=== PATIENT | female | born 1995 | race Caucasian/White ===

== ENCOUNTER 2019-12-23 19:17 | Emergency (ER) | payer OTHER, SELFPAY ==
[2019-12-23 19:21] VITALS: BP 138/86; PULSE 100; RESP 20; TEMP 37.4; O2SAT 99; BMI 31.9
--- NOTE | 2019-12-23 19:27 | PC.NURSE ---
Pt declined ibuprofen or tylenol. Pt has clear and equal breath sounds.
--- NOTE | 2019-12-23 20:15 | DI.RAD.S_ITS ---
PROCEDURE: XR CHEST 2V INDICATIONS: fever, cough TECHNIQUE: 2 views of the chest were acquired. COMPARISON: [facility], , CHEST 1 VIEW, 07/08/2017, 8:21. FINDINGS: Surgical changes and devices: None. Lungs and pleura: Lungs are clear. No pleural effusions or pneumothorax. Mediastinum: Mediastinal contours are normal. Heart size is normal. Bones and chest wall: No suspicious bony abnormalities. Soft tissues appear unremarkable. IMPRESSION: 1. No acute cardiopulmonary disease. Dictated by: Ron Xiao M.D. on 12/23/2019 at 21:18 Approved by: Ron Xiao M.D. on 12/23/2019 at 21:18
[2019-12-23] MEDS: IBUPROFEN 400 MG TABLET 800 MG PO (20:48)
--- NOTE | 2019-12-23 21:09 | ED.URI ---
HPI - URI/Sore Throat <SCOTTIE VarelaBC - Last Filed: 12/23/19 21:34> General Chief Complaint: Upper Respiratory Symptoms Stated Complaint: FEVER NO MOVEMENT LEFT LUNG Time Seen by Provider: 12/23/19 20:06 Source: patient Mode of arrival: Ambulatory Limitations: no limitations History of Present Illness HPI Narrative: The patient is a 24-year-old female nonsmoker who denies pertinent medical history presents with a chief complaint of ?I have no breath sounds of my left lung? as well as fevers, sore throat cough. She states she has been sick since this morning with a temperature of 104?. She was tested for flu at that clinic, and this came back negative. She states her cough is productive. She presents to the emergency department because she is concerned about not having breath sounds in her left lung. This she states that her sore throat started a few days ago, but has been getting slightly better but still sore. She denies any ear pain. She denies any abdominal pain, nausea vomiting or diarrhea. Related Data Home Medications Medication Instructions Recorded Confirmed cholecalciferol (vitamin D3) 2,000 iu PO QDAY #0 01/15/17 [Vitamin D3] multivitamin [Multiple Vitamins] 1 tab PO QDAY #0 01/15/17 Previous Rx's Medication Instructions Recorded triamcinolone acetonide 1 johanna TOPICAL BID #15 gm 01/24/17 medroxyprogesterone 150 mg IM SEE INSTRUCTIONS #1 ea 02/07/17 naproxen 500 mg OR BID #60 tab 04/07/17 albuterol sulfate [Ventolin HFA] 0 puff INH Q4HP PRN #1 ea 07/08/17 Allergies Allergy/AdvReac Type Severity Reaction Status Date / Time No Known Drug Allergies Allergy Verified 12/23/19 19:21 Review of Systems <VERNON Varela - Last Filed: 12/23/19 21:34> Review of Systems Narrative: GENERAL: See HPI HEENT: See HPI RESPIRATORY: See HPI CARDIOVASCULAR: Denies chest pain, palpitations, orthopnea, edema, GASTROINTESTINAL: Denies nausea, vomiting, abdominal pain, diarrhea, constipation, melena. : Denies dysuria, frequency, incontinence, hematuria, urinary retention. MUSCULOSKELETAL: denies weakness, joint pain, or bony pain SKIN: Denies rash, skin lesions, or other NEUROLOGIC: Denies weakness, headache, numbness, change in speech, confusion, seizures, incoordination. PSYCHIATRIC: No concerning psychosocial issues. 12 point review of systems is negative except for those stated above Patient History <Lalitha VERNON Ya - Last Filed: 12/23/19 21:34> Family History (Updated 03/20/16 @ 00:00 by Conversion Provider) Grandfather Mental health problem Grandmother Age: 63 Mental health problem Grandfather Age: 65 Cancer Social History Smoking Status: Never smoker Smoking Status: Never smoker alcohol intake frequency: holidays/special occasions only Substance Use Type: does not use Exam <VERNON Varela - Last Filed: 12/23/19 21:34> Narrative Exam Narrative: GENERAL: This is a well-nourished, well-developed patient, no acute distress HEAD: Atraumatic. Normocephalic. No temporal or scalp tenderness. EYES: Pupils equal round and reactive. Extraocular motions intact. No scleral icterus. No injection or drainage. ENT: Nose without bleeding, purulent drainage or septal hematoma. Throat without erythema, tonsillar hypertrophy or exudate. Uvula midline. Airway patent. Bilateral TMs pearly rader. Bilateral ear canals within normal limits. NECK: Trachea midline. No JVD or lymphadenopathy. Supple, nontender, no meningeal signs. CARDIOVASCULAR: Regular rate and rhythm RESPIRATORY: Clear to auscultation. Breath sounds equal bilaterally. No wheezes, rales, or rhonchi. No cough. No increased respiratory effort. GASTROINTESTINAL: Abdomen soft, non-tender, nondistended. No hepato-splenomegaly, or palpable masses. No guarding. Active bowel sounds all 4 quadrants EXTREMITIES: No clubbing, cyanosis, or edema. No joint tenderness, effusion, or edema noted. BACK: Nontender without deformity or crepitance. No flank tenderness. NEURO: AOx3. SKIN: No rash or erythema on visible skin Initial Vital Signs Initial Vital Signs: Vital Signs Temperature 99.3 F 12/23/19 19:21 Pulse Rate 100 H 12/23/19 19:21 Respiratory Rate 20 12/23/19 19:21 Blood Pressure 138/86 12/23/19 19:21 Pulse Oximetry 99 12/23/19 19:21 <Andrae Wing DO - Last Filed: 12/23/19 22:08> Initial Vital Signs Initial Vital Signs: Vital Signs Temperature 99.3 F 12/23/19 19:21 Pulse Rate 100 H 12/23/19 19:21 Respiratory Rate 20 12/23/19 19:21 Blood Pressure 138/86 12/23/19 19:21 Pulse Oximetry 99 12/23/19 19:21 Course <VERNON Varela - Last Filed: 12/23/19 21:34> Orders Ordered: ED Orders 12/23/19 20:15 XR chest 2V Stat Discontinued Medications Ibuprofen (Advil) 800 mg PO NOW ONE Stop: 12/23/19 20:16 Last Admin: 12/23/19 20:48 Dose: 800 mg Documented by: SARAN Vital Signs Vital signs: Vital Signs - 8 hr 12/23/19 19:21 12/23/19 21:55 Temperature 99.3 F 98.0 F Pulse Rate 100 H 86 Respiratory Rate 20 18 Blood Pressure 138/86 111/77 Pulse Oximetry 99 97 <Andrae Wing DO - Last Filed: 12/23/19 22:08> Orders Ordered: ED Orders 12/23/19 20:15 XR chest 2V Stat Discontinued Medications Ibuprofen (Advil) 800 mg PO NOW ONE Stop: 12/23/19 20:16 Last Admin: 12/23/19 20:48 Dose: 800 mg Documented by: SARAN Vital Signs Vital signs: Vital Signs - 8 hr 12/23/19 19:21 12/23/19 21:55 Temperature 99.3 F 98.0 F Pulse Rate 100 H 86 Respiratory Rate 20 18 Blood Pressure 138/86 111/77 Pulse Oximetry 99 97 MDM - URI/Sore Throat <VERNON Varela - Last Filed: 12/23/19 21:34> Lab Data Labs: Point of Care Testing Rapid Strep A Negative Imaging Data Chest x-ray: Radiologist's Impression: [address] [place] [id number] XRay Report Signed Patient: Renaldo Talavera#: [id number] : 1995Acct:[id number] Age/Sex: 24 / FDate of Service: 12/23/19 Loc: ED Accession Number: [id number] Procedure: XR chest 2V Ordering Provider: Lalitha Ya PROCEDURE: XR CHEST 2V INDICATIONS: fever, cough TECHNIQUE: 2 views of the chest were acquired. COMPARISON: [facility], CHEST 1 VIEW, 07/08/2017, 8:21. FINDINGS: Surgical changes and devices: None. Lungs and pleura: Lungs are clear. No pleural effusions or pneumothorax. Mediastinum: Mediastinal contours are normal. Heart size is normal. Bones and chest wall: No suspicious bony abnormalities. Soft tissues appear unremarkable. IMPRESSION: 1. No acute cardiopulmonary disease. Dictated by: Ron Xiao M.D. on 12/23/2019 at 21:18 Approved by: Ron Xiao M.D. on 12/23/2019 at 21:18 [facility] Narrative Medical decision making narrative: The patient is a 24-year-old female who presents with a chief complaint of decreased lung zones over left lung. Lung sounds are equal bilaterally. She tested negative for the flu at the outpatient clinic, so this was not repeated. POC strep was done in this came back negative. Given patient's concern, x-ray was taken. No signs of pneumonia. I did discuss at length with the patient that I was not sure exactly what viral illness she had, but that I recommended supportive care including Tylenol, Motrin. The patient and her significant other appeared frustrated that there were sent from [place] for concern of decreased breath sounds in her x-ray is within normal limits. There very concerned that her fever and cough started suddenly. I discussed that this can correlate with viral onset, copious reassurance provided. Discussed at length following up with primary care provider coming back to the emergency department for any acute concerns such as shortness of breath etcetera. Patient has no questions or concerns upon discharge and states understanding of return precautions as well as follow-up care. <Andrae Wing, - Last Filed: 12/23/19 22:08> Lab Data Labs: Point of Care Testing Rapid Strep A Negative Discharge Plan Departure Patient Disposition: Home Clinical Impression: Upper respiratory infection Qualifiers: URI type: unspecified viral URI Qualified Code(s): J06.9 - Acute upper respiratory infection, unspecified Discharge Date/Time: 12/23/19 21:57 Instructions: DI for Viral Upper Respiratory Infection -- Adult Activity Restrictions/Additional Instructions: Thank you for trusting us with your care today. Your x-ray shows no pneumonia. Both of your lungs are inflated. You tested negative for strep ear today and your fever is down. Please use [id number] medications as needed and able. Please rest and push fluids. Please come back to the emergency department for any acute concerns Please follow-up with primary care provider. Prescriptions: No Action multivitamin [Multiple Vitamins] 1 EACH tablet 1 tab PO QDAY Qty: 0 RF: 0 cholecalciferol (vitamin D3) [Vitamin D3] 2,000 UNIT capsule 2,000 iu PO QDAY Qty: 0 RF: 0 triamcinolone acetonide 0.1 % cream 1 johanna Topical BID Qty: 15 RF: 0 medroxyprogesterone 150 MG/1 ML suspension 150 mg IM SEE INSTRUCTIONS Qty: 1 RF: 1 naproxen 500 MG tablet 500 mg OR BID Qty: 60 RF: 1 albuterol sulfate [Ventolin HFA] 90 MCG/PUFF HFA aerosol inhaler 0 puff INH Q4HP PRNQty: 1 RF: 0 Referrals: [facility] [Outside] <Andrae Wing, DO - Last Filed: 12/23/19 22:08> Sign Out Provider Sign Out Attestation: Dr Wing Co-Sign Statement: I was available for consultation during this patient's emergency department visit. This chart is signed by myself for administrative purposes only. I did not have direct contact with this patient during this visit. They were seen independently by the APC.
[2019-12-23 21:55] VITALS: BP 111/77; PULSE 86; RESP 18; TEMP 36.7; O2SAT 97
== END 2019-12-23 21:57 | disposition home or self-care (01) ==
PROVIDERS: Emergency Provider Nurse Practitioner Family
DX: J06.9 Acute upper respiratory infection, unspecified (principal); R50.9 Fever, unspecified
CPT/HCPCS: 71046; 87880; 99283

== ENCOUNTER → 2020-10-05 13:05 | Outpatient (CLI) | payer OTHER, MEDICAID, SELFPAY ==
[2020-10-05 13:51] LABS: Add Manual Diff / Slide Review NO; Basophils Absolute Auto 0 /uL (0-100); Basophils Percent Auto 0.3 % (0-2); Eosinophils Absolute Auto 0 /uL (0-450); Eosinophils Percent Auto 0.3 % (2-4); Hematocrit 41.9 % (36-46); Hemoglobin 13.9 g/dL (12.0-16.0); Lymphocytes Absolute Auto 1400 /uL (1100-4500); Lymphocytes Percent Auto 19.9 % (25-40); Mean Corpuscular Hemoglobin 30.5 PG (26-34); Mean Corpuscular Volume 92.3 fL (80-100); Monocytes Absolute Auto 500 /uL (0-900); Monocytes Percent Auto 7.2 % (3-14); Neutrophils Absolute Auto 5100 /uL (1500-7000); Neutrophils Percent Auto 72.3 % (50-75); Platelet Count 218 X10^3/uL (150-400); Red Blood Cell Count 4.54 X10^6/uL (4.0-5.2); Red Cell Distribution Width 13.2 % (11.6-14.8); White Blood Cell Count 7.1 X10^3/uL (4.5-11.0)
[2020-10-05 15:01] LABS: Appearance Urine UA SL CLOUDY; Bilirubin Urine UA NEGATIVE (NEGATIVE); Color Urine UA YELLOW; Glucose Urine UA NEGATIVE (Negative); Ketones Urine UA 1+ (NEGATIVE); Leukocyte Esterase Urine UA 3+ (NEGATIVE); Nitrite Urine UA POSITIVE (Negative); Occult Blood Urine UA TRACE-LYSED (Negative); Protein Urine UA 1+ (Negative); Specific Gravity Urine UA 1.015 (1.000-1.035); Urobilinogen Urine UA 0.2 E.U./dL (0.2)
[2020-10-05 15:03] LABS: pH Urine UA 6.5 (4.5-8.0)
[2020-10-05 15:04] LABS: RBC Urine None Seen (0-5/HPF)
[2020-10-05 15:08] LABS: Squamous Epithelial Cell Urine 0-1 /HPF (0-5/HPF); WBC Urine >100/HPF (0-5/HPF)
[2020-10-05 15:09] LABS: Bacteria Urine Many (>30); Culture Indicated Urine Specimen Cultured; Transitional Epi Cells Urine 5-10/HPF (0-5/HPF)
[2020-10-05 17:25] LABS: Hepatitis B Surface Antigen NEGATIVE s/c (NEGATIVE); Rubella Antibody IgG 7.3 IU/mL (>15)
[2020-10-05 17:29] LABS: HIV 1 & 2 Ab/Ag 4th Gen Combo NEGATIVE (NEGATIVE); Hep C Virus Ab w/Reflex Quant NEGATIVE s/c (NEGATIVE)
[2020-10-06 07:44] LABS: RPR Screen Non Reactive (Non Reactive)
[2020-10-06 10:27] LABS: Varicella IgG Antibody 209 index (Immune >165)
== END ==
PROVIDERS: Referring Provider Specialist; Visit Provider Specialist
DX: Z34.01 Encounter for supervision of normal first pregnancy, first trimester (principal); R31.9 Hematuria, unspecified; Z3A.01 Less than 8 weeks gestation of pregnancy
CPT/HCPCS: 36415; 80055; 81003; 81015; 86787; 86803; 86850; 86900; 86901; 87077; 87086; 87147; 87186; 87389

== ENCOUNTER → 2020-12-21 14:48 | Outpatient (CLI) | payer OTHER, MEDICAID, SELFPAY ==
[2020-12-23 20:53] LABS: AFP, Serum 25.9 ng/mL (.); Calc Gestational Age Ultrasound (.); Estriol, Free 1.97 ng/mL (.); Inhibin A, Dimeric 150.16 pg/mL (.); Inhibin A, MoM 1.14 (.); Maternal Ethnicity Caucasian (.); Maternal Weight 215 lbs (.); Number of Fetuses No (.); OSBR Risk 1 IN 10000 (.); Results Report (.); Test Results *Screen Negative* (.); hCG, Serum 27357 mIU/mL (.)
== END ==
PROVIDERS: PCP Internal Medicine; Referring Provider Specialist; Visit Provider Specialist
DX: Z34.02 Encounter for supervision of normal first pregnancy, second trimester (principal); Z3A.17 17 weeks gestation of pregnancy
CPT/HCPCS: 36415; 82105; 82677; 84702; 86336

== ENCOUNTER → 2021-01-19 11:34 | Outpatient (CLI) | payer OTHER, MEDICAID, SELFPAY | PROVIDERS: PCP Internal Medicine; Visit Provider Specialist | DX: Z34.02 Encounter for supervision of normal first pregnancy, second trimester (principal); Z3A.21 21 weeks gestation of pregnancy | CPT/HCPCS: 87086 ==

== ENCOUNTER → 2021-01-19 11:56 | Outpatient (CLI) | payer OTHER, MEDICAID, SELFPAY ==
--- NOTE | 2021-01-19 11:57 | DI.US.S_ITS ---
PROCEDURE: US OB >= 14 WEEKS FETUS INDICATIONS: 20 week anatomy OUTSIDE/PRIOR DATING DATA: First dating scan (date and location): 10/05/2020 . Estimated date of delivery (NICOLE) from first dating scan: 05/29/2021 . TECHNIQUE: Real-time scanning was performed of the fetus, with image documentation and biometric measurements. Endovaginal scanning: No COMPARISON: [facility], , OB >= 14 WEEKS FETUS, 12/21/2020, 14:32. FINDINGS: General: A single living intrauterine gestation is present. Presentation: Vertex. Placenta: Placental position is posterior , without previa. Amniotic fluid index: 10 cm, normal range is 5-24 cm. heart rate: 150 beats per minute. Maternal cervical canal: 4.3 cm long. Normal lower limit is 2.5 cm. biometrics: Biparietal diameter: 20 weeks 5 days Head circumference: 21 weeks 2 days Abdominal circumference: 21 weeks 3 days Femur length: 22 weeks 1 day Estimated gestational age from initial scan: 21 weeks 3 days Composite gestational age from present scan: 21 weeks 2 days Estimated weight and percentile: 440 g; 56 percentile Measurement variability for biometric dating: +/- 7 days from 14 weeks to 15 weeks 6 days gestation, +/- 10 days from 16 weeks to 21 weeks 6 days gestation, +/- 2 weeks from 22 weeks to 27 weeks 6 days gestation, +/- 3 weeks for 28 weeks gestation or later. weight reference: 4500 g or EFW >90/95% is considered macrosomia or large for gestational age. EFW <10% is small for gestational age. EFW 5% or less is considered intra-uterine growth restriction. Anatomic survey: Neuro: Ventricles are non-dilated at less than 10 mm. Cisterna magna is normal at 3-11 mm. Cerebellum is normal in size and morphology. Nuchal skin fold: Normal at less than 6 mm between 14-21 weeks gestational age. Face: Nose and lips, facial profile are normal. Spine: No evidence for spina bifida. Heart: 4-chambered heart is present, with normal ventricular outflow tracts. Diaphragm: Diaphragm is intact. Stomach: Left-sided stomach is present. Kidneys: No hydronephrosis. Normal is less than 5 mm in 2nd trimester, less than 7 mm in 3rd trimester. Cord: 3-vessel cord has orthotopic insertion. Bladder: Normal in size. Extremities: All 4 extremities identified. IMPRESSION: 1. Normal interval growth. 2. Normal anatomic survey. Dictated by: Shemar Franklin [facility] Interpreted: Kelby Hein MD on 01/19/2021 at 16:51 Approved by: Kelby Hein M.D. on 01/21/2021 at 12:32
== END ==
PROVIDERS: PCP Internal Medicine; Referring Provider Specialist; Visit Provider Specialist
DX: Z34.02 Encounter for supervision of normal first pregnancy, second trimester (principal); Z3A.21 21 weeks gestation of pregnancy
CPT/HCPCS: 76811; 87086

== ENCOUNTER → 2021-04-22 12:02 | Outpatient (ROUT) | payer OTHER, MEDICAID, SELFPAY ==
[2021-04-22 13:34] LABS: Urine N gonorrhoeae NOT DETECTED
[2021-04-22 13:36] LABS: Urine Chlamydia NOT DETECTED
== END ==
PROVIDERS: PCP Internal Medicine; Visit Provider Specialist
DX: Z34.03 Encounter for supervision of normal first pregnancy, third trimester (principal); Z3A.34 34 weeks gestation of pregnancy
CPT/HCPCS: 87491; 87591

== ENCOUNTER → 2021-05-07 14:21 | Outpatient (CLI) | payer OTHER, MEDICAID, SELFPAY ==
[2021-05-08 12:22] LABS: Strep Grp B PCR NEG for Grp B Strep
== END ==
PROVIDERS: PCP Internal Medicine; Visit Provider Specialist
DX: Z34.03 Encounter for supervision of normal first pregnancy, third trimester (principal); Z3A.37 37 weeks gestation of pregnancy
CPT/HCPCS: 87653

== ENCOUNTER 2021-05-24 21:57 | Inpatient (IN) | payer OTHER, MEDICAID, SELFPAY ==
[2021-05-24 22:26] LABS: Add Manual Diff / Slide Review NO; Basophils Absolute Auto 0 /uL (0-100); Basophils Percent Auto 0.4 % (0-2); Eosinophils Absolute Auto 100 /uL (0-450); Eosinophils Percent Auto 1.4 % (2-4); Hematocrit 35.8 % (36-46); Hemoglobin 11.8 g/dL (12.0-16.0); Lymphocytes Absolute Auto 2000 /uL (1100-4500); Lymphocytes Percent Auto 19.6 % (25-40); Mean Corpuscular HGB Conc 33.1 % (30-36); Mean Corpuscular Volume 93.8 fL (80-100); Monocytes Absolute Auto 500 /uL (0-900); Neutrophils Absolute Auto 7500 /uL (1500-7000); Neutrophils Percent Auto 73.6 % (50-75); Platelet Count 230 X10^3/uL (150-400); Red Blood Cell Count 3.81 X10^6/uL (4.0-5.2); Red Cell Distribution Width 14.1 % (11.6-14.8); White Blood Cell Count 10.2 X10^3/uL (4.5-11.0)
[2021-05-24] MEDS: DINOPROSTONE VAG (CERVIDIL) 10 MG VAG (22:31)
[2021-05-24] MEDS: ACETAMINOPHEN 325 MG TABLET 650 MG PO (22:36)
[2021-05-24] MEDS: ZOLPIDEM 5 MG TABLET PO (22:37)
[2021-05-24 23:16] LABS: COVID19 - ADMIT (NP swab/PCR) Negative (Negative)
[2021-05-25 01:03] VITALS: BP 106/55
[2021-05-25] MEDS: ONDANSETRON 4 MG/2 ML INJ IV (06:25)
[2021-05-25] MEDS: ACETAMINOPHEN 325 MG TABLET 650 MG PO ×2 (06:30→20:25)
[2021-05-25] MEDS: CALCIUM CARBONATE 500 MG TAB 1000 MG PO (08:12)
[2021-05-25] MEDS: LACTATED RINGERS 1,000 ML 100 ML IV (10:44)
[2021-05-25] MEDS: OXYTOCIN PREMIX 30 UNIT/500 ML PLAST..BAG IV (10:45)
--- NOTE | 2021-05-25 13:35 | PM.OBHP.1 ---
OB HPI Date/Time Date of admission: 05/24/21 Date Patient Seen: 05/25/21 Time Patient Seen: 07:45 History of Present Condition Chief complaint: : 1 Para: 0 Estimated Date of Delivery: 05/29/21 Estimated Gestational Age (weeks): 39 Narrative: Sanchez Talavera is a 25 year old female who lives on [facility] admitted for induction for distance from the hospital Indications Indication for induction OB: maternal distance History of Present care: good care, initiated at week # (6), number of visits (11) and pounds weight gain (50) Dating criteria: based on 1st trimester US only Ultrasounds: normal mid trimester US Obstetrical complications: none Medical complications: none Preadmission Labs Blood type: O (+) positive -: Antibody screen: negative, GBS status: negative, HBsAG: negative, HIV: negative and RPR/VDLR: negative -: Chlamydia screen: not detected and Gonorrhea screen: not detected -: Rubella: not immune and Varicella: immune HCAB: negative Evaluation Evaluation Baseline heart rate: 130 Variability: Moderate (11-25) monitor accelerations: Present Monitor Decelerations: Absent Contraction Frequency (minutes): 2 Uterine Contraction Intensity: Mild Category of Tracing: Reactive Status: Category l Cervical dilation (cm): 1 Cervical effacement (%): 60 station: -2 Laboratory results: Laboratory Tests 05/24/21 05/24/21 05/24/21 21:50 21:50 21:50 WBC 10.2 RBC 3.81 L Hgb 11.8 L Hct 35.8 L MCV 93.8 MCH 31.0 MCHC 33.1 RDW 14.1 Plt Count 230 Neut % (Auto) 73.6 Lymph % (Auto) 19.6 L Mcintosh % (Auto) 5.0 Eos % (Auto) 1.4 L Baso % (Auto) 0.4 Neut # (Auto) 7500 H Lymph # (Auto) 2000 Mcintosh # (Auto) 500 Eos # (Auto) 100 Baso # (Auto) 0 SARS-CoV-2 (PCR) Negative Blood Type O Positive Antibody Screen Negative [facility] Medical History (Updated 10/15/20 @ 20:42 by Sydni Brush) Acne Alcoholic gastritis Bronchitis (~2016) FAS ( alcohol syndrome) (~1995) Genital warts (~2015) Kidney failure (~2010) Partial blindness Pneumonia (~2014) Psoriasis Pyelonephritis (05/14/15) Scoliosis Single kidney (05/14/15) Family History (Updated 09/29/20 @ 11:05 by Darya Garcia RN) Grandfather No problems noted. Grandmother Age: 65 Family history unknown Grandfather Age: 67 Cancer Mother Family history unknown Father No problems noted. Grandmother No problems noted. 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 Had a drink once or twice before she knew she was .) substance use type: marijuana (Not since confirmed. ) during the past year weight has: remained stable well-balanced diet: daily or most days daily servings fruits/ve-4 caffeine: Yes (Cut down on soda. Coffee once or twice a week. ) eating out: 1-3 times/week Type(s) of exercise: walking and normal ROM and activity frequency: 3-4 times per week duration: 15-30 minutes/day Meds Home Medications and Allergies Home Medications Medication Instructions Recorded Confirmed Type prenat.vits,mariano,pyz-aksm-pqtol 1 tab PO DAILY 09/29/20 05/20/21 History cetirizine 10 mg capsule (Zyrtec) 10 mg PO DAILY PRN #30 cap 03/17/21 05/20/21 Rx ondansetron HCl 4 mg tablet 4 mg PO Q8H PRN #20 tab 03/17/21 05/20/21 Rx (Zofran) omeprazole 40 mg capsule,delayed 40 mg PO DAILY #30 cap 04/06/21 05/20/21 Rx release Allergies Allergy/AdvReac Type Severity Reaction Status Date / Time crab Allergy Mild Itchy Verified 02/24/21 13:22 hands, hives shrimp Allergy Mild Itchy Verified 02/24/21 13:22 hands, hives Review of Systems Review of Systems Narrative: Patient has not had any leakage of fluid. Good movement. No headaches, scotomata, epigastric pain. Patient denies any significant cramping ROS: Yes All systems reviewed with the patient and are negative except as otherwise documented Exam Vital Signs (past 8 hours): Blood pressure 122/77, pulse of 80, temperature 97.8? Narrative Exam Narrative: HEENT exam within normal limits. Lungs are clear to auscultation percussion. Heart is regular rate and rhythm no S3-S4 murmurs. Abdomen is gravid. Fetus is vertex. Extremities with trace edema and nontender. Normal DTRs. Objective Labs Result Diagrams: 05/24/21 21:50 Labs: Laboratory Results - last 24 hr 05/24/21 05/24/21 05/24/21 21:50 21:50 21:50 WBC 10.2 RBC 3.81 L Hgb 11.8 L Hct 35.8 L MCV 93.8 MCH 31.0 MCHC 33.1 RDW 14.1 Plt Count 230 Neut % (Auto) 73.6 Lymph % (Auto) 19.6 L Mcintosh % (Auto) 5.0 Eos % (Auto) 1.4 L Baso % (Auto) 0.4 Neut # (Auto) 7500 H Lymph # (Auto) 2000 Mcintosh # (Auto) 500 Eos # (Auto) 100 Baso # (Auto) 0 SARS-CoV-2 (PCR) Negative Blood Type O Positive Antibody Screen Negative Assessment and Plan Assessment and Plan Assessment and Plan narrative: 39 week gestation admitted for Cytotec induction for distance from the hospital. Patient did not have any significant cervical change. Options reviewed with the patient of leaving the hospital and returning when she went into active labor. Returning tomorrow night to repeat oral Cytotec and Pitocin. Also we could start Pitocin however could not guarantee that she would start in labor or that we would not increase her risk for or vacuum or forceps delivery. Patient would like to be started on Pitocin. She will be evaluated for further plan later today if not in active labor.
--- NOTE | 2021-05-25 20:48 | PM.OBPNLAB ---
Date/Time Date Patient Seen: 05/25/21 Time Patient Seen: 20:48 Pain Control Pain control: tolerating well Pelvic Exam Dilation (cm): 1 Effacement (%): 60 station: -1 Amniotic membrane status: Intact Contractions Contractions on admission: regular Monitor mode: External Pitocin rate (mU/min): 14 Contraction frequency (min): 2 Contraction duration (min): 1 Contraction pattern: Regular Contraction intensity: Mild Status status: Category l Heart Rate Baseline: 130 Monitor Accelerations: Present Monitor Decelerations: Absent Monitor Variability: Moderate Assessment and Plan Assessment: induction ongoing Plan: continuous present management Comments: Patient was started on Pitocin after 10:00 a.m. when her Cervidil was finished. It was apparent that at some point her IV infiltrated and she was not getting Pitocin. She had an IV restart and Pitocin begun at 3:00 p.m.. Patient is now finally getting more uncomfortable with contractions. Cervix has become more anterior with the head descending slightly. We will continue with Pitocin induction at this time. heart tones are reassuring. No rupture membranes.
[2021-05-26] MEDS: fentaNYL 100 MCG/2 ML INJ IV ×2 (01:24)
[2021-05-26] MEDS: ONDANSETRON 4 MG/2 ML INJ IV ×2 (02:58→10:21)
[2021-05-26] MEDS: FENT 2MCG/ML BUPIV 0.125% EPI 200 MCG/100 ML PLAST..BAG 12 MCG EPIDURAL ×3 (04:16→17:00)
--- NOTE | 2021-05-26 07:18 | PM.OBPNLAB ---
Date/Time Date Patient Seen: 05/26/21 Time Patient Seen: 07:18 Pain Control Pain control: epidural Pelvic Exam Dilation (cm): 3 Effacement (%): 75 station: -1 Amniotic membrane status: Intact Contractions Monitor mode: External Pitocin rate (mU/min): 22 Contraction frequency (min): 2 Contraction duration (min): 1 Contraction pattern: Irregular Contraction intensity: Mild Status status: Category l Heart Rate Baseline: 130 Monitor Accelerations: Present Monitor Decelerations: Absent Monitor Variability: Moderate Assessment and Plan Assessment: induction ongoing Comments: Patient had Pitocin turned off for 1-2 hours. Will restart Pitocin. Discussed if she has no progress in labor the next step will be section. Ultrasound shows the fetus is in the 0 P position.
[2021-05-26] MEDS: CALCIUM CARBONATE 500 MG TAB 1000 MG PO (08:39)
[2021-05-26] MEDS: ACETAMINOPHEN 325 MG TABLET 650 MG PO (08:40)
--- NOTE | 2021-05-26 13:08 | PM.OBPNLAB ---
Date/Time Date Patient Seen: 05/26/21 Time Patient Seen: 13:00 Pain Control Pain control: tolerating well and epidural Pelvic Exam Dilation (cm): 3 Effacement (%): 80 station: -1 Amniotic membrane status: Intact Comments: AROM performed 1305, clear fluid, IUPC placed Contractions Contractions on admission: irregular Monitor mode: Internal Pitocin rate (mU/min): 18 Contraction frequency (min): 4 Contraction duration (min): 1 Contraction pattern: Irregular Contraction phase: Resting Contraction intensity: Mild Intrauterine tone measurement: 30 Status status: Category l Heart Rate Baseline: 145 Monitor Accelerations: Present Monitor Decelerations: Absent Monitor Variability: Moderate Comments: tolerated induction well. Assessment and Plan Assessment: induction ongoing Plan: continuous present management Comments: Optimize uterine contraction activity and continue close observation for progress in dilation, effacement, and descent. The patient is aware that failure to progress in labor would be an indication for primary section but since the infant is clearly doing well in labor thus far, there is no indication for and potential obstetrical indications for , e.g. failed induction or secondary arrest, have not yet been met. Will continue augmentation to affect adequate uterine contraction activity and recheck cervical exam for progress in 4 hours. The current plan, underlying rationale explained to patient and support person. All patient questions answered.
--- NOTE | 2021-05-26 16:44 | PM.OBPNLAB ---
Date/Time Date Patient Seen: 05/26/21 Pain Control Pain control: tolerating well and epidural Pelvic Exam Dilation (cm): 8 Effacement (%): 100 station: -1 Amniotic membrane status: Ruptured Contractions Contractions on admission: regular Monitor mode: Internal Pitocin rate (mU/min): 21 Contraction frequency (min): 4 Contraction duration (min): 1 Contraction pattern: Irregular Contraction phase: Resting Contraction intensity: Strong/Firm Intrauterine tone measurement: 50 Status status: Category l Heart Rate Baseline: 150 Monitor Accelerations: Episodic Monitor Decelerations: Absent Monitor Variability: Moderate Assessment and Plan Assessment: active labor and induction ongoing Plan: continuous present management Comments: Current position indeterminate.
[2021-05-26] MEDS: LACTATED RINGERS 1,000 ML 100 ML IV ×2 (17:33→21:17)
--- NOTE | 2021-05-26 20:18 | PM.PREOP ---
Pre-operative Note COVID-19 COVID-19 status: Negative Result date/Date tested (Pos, Neg/Pending): 05/24/21 Interval Note History & Physical reviewed/Exam performed by Physician: Yes Changes to H&P: Yes H&P completed within 30 days and has changed as indicated here:: second-stage arrest with maternal exhaustion patient requesting
--- NOTE | 2021-05-26 20:19 | P.PNOB_ITS ---
Date/Time Date Patient Seen: 05/26/21 Time Patient Seen: 20:19 Pain Control Pain control: epidural ( patient is still having a lot of back pain) Pelvic Exam Dilation (cm): 10 Effacement (%): 100 station: -1 Amniotic membrane status: Ruptured Contractions Contractions on admission: regular Monitor mode: Internal Pitocin rate (mU/min): 25 Contraction frequency (min): 3 Contraction duration (min): 1 Contraction pattern: Regular Contraction intensity: Strong/Firm Intrauterine tone measurement: 50 Status status: Category ll Heart Rate Baseline: 160 Monitor Accelerations: Episodic Monitor Decelerations: Absent Monitor Variability: Minimal Assessment and Plan Plan: Comments: Patient pushing for over 2 hours with minimal descent and epidural not controlling her pain. patient given options for vacuum, forceps, and section. Patient is requesting for maternal exhaustion and second-stage arrest. Consent form for section was reviewed with the patient. Risk of damage to bladder, bowel, ureters that could require additional surgery to repair. Risk of infection. Risk of bleeding that could result in a blood transfusion which the patient is agreeable to. Reaction to medication or anesthesia. Consent form signed and questions answered. Patient's and purification operator helper were present for the discussion as well as the nurse.
[2021-05-26] MEDS: CITRIC ACID/SODIUM CITRATE 15 ML SOLUTION 30 ML PO (20:37)
[2021-05-26] MEDS: CEFAZOLIN 1 GM VIAL 2 GM IV ×2 (20:45→21:41)
[2021-05-26] MEDS: ACETAMINOPHEN 325 MG TABLET 975 MG PO (21:16)
--- NOTE | 2021-05-26 22:16 | SUR.OPER ---
Supine on Padded OR bed, head on pillow, safety belt at thigh, arms secured on padded arm boards at <90 degrees abduction. Bump under right buttock. Legs uncrossed with pillow under knees, gel pad to heels, tape over blanket to lower legs.
[2021-05-26] MEDS: BUPIVACAINE 0.25% W/ EPI 30 ML VIAL INJ (22:21)
--- NOTE | 2021-05-26 22:38 | SUR.OPER ---
Viable Baby girl delivered at 2205. Placenta delivered. Placenta and Cord blood tubes X2 given to L&D RN.
[2021-05-26 23:00] VITALS: BP 127/80; PULSE 86; RESP 14; TEMP 36.9; O2SAT 96
[2021-05-26 23:05] VITALS: BP 147/83; PULSE 110; RESP 19; O2SAT 94
--- NOTE | 2021-05-26 23:06 | PM.OBCS.1 ---
Operative Date/Time/Diagnoses Date of procedure: 05/26/21 Time of procedure: 23:06 Pre-op diagnosis: second-stage arrest Post-op diagnosis: same Procedure & Clinicians Procedure: primary low-transverse section Same procedure as scheduled: Yes Indications: second-stage arrest Surgeon: Shirley Florentino Click Yes if Unassisted: Yes Anesthesia Type: General and Epidural Operative Notes Findings: Normal tubes, ovaries, and uterus. Viable female weighing 7 lb. Apgars of 9 and 9 Closure Type: primary Specimen(s): cord blood Intraoperative meds administered: Duramorph, Ketorolac and Pitocin Applied: Catheter ( Whitlock) Estimated Blood Loss (mL): 400 Blood products transfused: none Procedure in detail: The patient was brought to the operating room where she underwent a bolus of her epidural for anesthesia, but then required general anesthesia because she did not have good pain control. She was placed in a supine position with a left lateral tilt. A Whitlock catheter was in place. Pulsatile stockings were placed and functional throughout the case. 2 g of Ancef were given IV prior to the incision. Warming was in place. The patient was prepped and draped in usual sterile fashion. A low transverse incision was made with a scalpel and the incision was carried down to the fascial layer which was incised transversely with scissors. The midline attachments are superiorly and inferiorly. Some bleeding was controlled Bovie. The rectus muscles were in the midline and the peritoneal incision was made with no damage to internal structures. The peritoneum was incised and superiorly and inferiorly. The incision was stretched with the surgeon and personalized living assistant placing traction. Bladder blade was placed and a bladder flap was developed and the bladder held away from the lower uterine segment. An incision was made in the uterus with the scalpel and the incision was extended with stretching. The head was elevated out of the abdomen and with fundal pressure by the personalized living assistant the baby was delivered. The infant was bulb suctioned for clear fluid and handed off to the warmer. Cord blood was collected. The placenta delivered spontaneously with traction. The uterus was cleaned with clean laps. The uterine incision was closed in 2 layers of 0 chromic suture the first a running locking layer the second an imbricating layer. The bladder peritoneum was repaired with 2-0 Vicryl suture. The gutters were cleaned of any remaining fluids and ovaries and tubes were observed to be normal. Adequate hemostasis was noted. The perineum was closed with 2-0 Vicryl suture. The fascia layer was closed with 0 Vicryl suture with 2 stitches. The incision was irrigated and adequate hemostasis noted. The incision was closed with interrupted 3-0 Vicryl sutures and then a subcuticular stitch of 4-0 Vicryl suture. Steri-Strips were placed. The uterus was massaged to remove any clots. The patient went to recovery room in good condition. Counts of instruments and sponges were correct. Complications: none Baby 1: Infant Gender: Female Presentation: vertex Position: Left Occiput Posterior Placental Delivery Description: Expressed Cord Vessel Description: 3 Vessels score (1 min): 9 score (5 min): 9 weight: 7 lb Post-operative Condition: stable Disposition: other ( Center) Aftercare: routine postop
[2021-05-26 23:10] VITALS: BP 127/87; PULSE 98; RESP 19; O2SAT 95
--- NOTE | 2021-05-26 23:13 | SUR.OPER ---
Prior to going to the OR, patient's Presybeterian is holding onto patients silver colored chain necklace and her wedding ring that was on the necklace. Patients nose piercing and bilateral earrings left in place.
--- NOTE | 2021-05-26 23:14 | SUR.PHASEI ---
Patient complained of site pain while being turned for Dr. Gonzales to remove the epidural catheter and during fundus check. Returned to sleep after being returned to supine position. Resp even and regular, skin warm and dry.
[2021-05-26 23:15] VITALS: BP 122/72; PULSE 101; RESP 22; O2SAT 95
[2021-05-26 23:24] VITALS: BP 136/77; PULSE 91; RESP 19; O2SAT 95
--- NOTE | 2021-05-26 23:49 | SUR.PHASEI ---
2338 to BR4. Bed down and locked, call light within reach, SCDs and continuous pulse oximeter on. Dad, family member, and baby in the room. Report given upon arrival. New pads and chux placed prior to transfer. Patient mostly sleeping, responses appropriate to questions. VSS. No further questions from staff.
--- NOTE | 2021-05-26 23:57 | SUR.PHASEI ---
2330 late entry - urine clearing to yellow in the gil bag
[2021-05-27] MEDS: KETOROLAC 30 MG/ML VIAL 15 MG IV ×2 (05:56→12:30)
[2021-05-27 08:53] LABS: Add Manual Diff / Slide Review NO; Basophils Absolute Auto 0 /uL (0-100); Eosinophils Absolute Auto 0 /uL (0-450); Hematocrit 27.8 % (36-46); Hemoglobin 9.3 g/dL (12.0-16.0); Lymphocytes Absolute Auto 1000 /uL (1100-4500); Mean Corpuscular HGB Conc 33.6 % (30-36); Mean Corpuscular Hemoglobin 31.3 PG (26-34); Mean Corpuscular Volume 93.2 fL (80-100); Monocytes Absolute Auto 600 /uL (0-900); Monocytes Percent Auto 4.5 % (3-14); Neutrophils Absolute Auto 12300 /uL (1500-7000); Neutrophils Percent Auto 88.5 % (50-75); Platelet Count 188 X10^3/uL (150-400); Red Blood Cell Count 2.98 X10^6/uL (4.0-5.2)
[2021-05-27] MEDS: BUTORPHANOL 1 MG/ML VIAL 0.5 MG IV (11:02)
[2021-05-27] MEDS: ACETAMINOPHEN 325 MG TABLET 650 MG PO ×2 (11:03→16:39)
[2021-05-27] MEDS: DOCUSATE 100 MG CAPSULE 200 MG PO (11:04)
[2021-05-27] MEDS: FERROUS SULFATE 325 MG TABLET PO (11:04)
[2021-05-27] MEDS: PRENATAL VIT,CALC/IRON/FOLIC 1 TABLET 1 TAB PO (11:04)
[2021-05-27] MEDS: OXYCODONE IR 5 MG TABLET PO (16:38)
--- NOTE | 2021-05-27 19:20 | P.PNOB_ITS ---
Subjective - OB Subjective Patient comments: incisional pain and flatus present baby status: doing well and nursing well Cobb feeding status: exclusively breast feeding Date Patient Seen: 05/27/21 Time Patient Seen: 19:21 Interval history: Postoperative primary for a second-stage arrest Exam Vital Signs (past 8 hours): Blood pressure 111/71, pulse of 80, temperature 98.6? Oxygen Delivery Method Room Air Narrative Exam Narrative: Abdomen is soft, nontender. Uterus is firm, at U, nontender. Dressing is clean, dry, intact. Mild lochia. Extremities with trace edema and nontender. Objective Labs Result Diagrams: 05/27/21 08:43 Labs: Laboratory Results - last 24 hr 05/27/21 08:43 WBC 14.0 H RBC 2.98 L Hgb 9.3 L Hct 27.8 L MCV 93.2 MCH 31.3 MCHC 33.6 RDW 14.0 Plt Count 188 Neut % (Auto) 88.5 H Lymph % (Auto) 7.0 L [place] % (Auto) 4.5 Eos % (Auto) 0.0 L Baso % (Auto) 0.0 Neut # (Auto) 04953 H Lymph # (Auto) 1000 L [place] # (Auto) 600 Eos # (Auto) 0 Baso # (Auto) 0 Assessment & Plan Plan day: 1 plan OB: routine postop care Comments: Patient unable to urinate since Whitlock catheter removed she will have an in and out catheter Time Spent With Patient Time: Total time spent is greater than 50% in coordination of care (as documented) at patient's floor/unit and/or counseling patient: Time with patient: less than 15 minutes
[2021-05-27] MEDS: OXYCODONE IR 5 MG TABLET 10 MG PO (20:19)
[2021-05-28] MEDS: OXYCODONE IR 5 MG TABLET 10 MG PO (01:05)
[2021-05-28] MEDS: ACETAMINOPHEN 325 MG TABLET 650 MG PO ×3 (01:13→19:54)
[2021-05-28] MEDS: OXYCODONE IR 5 MG TABLET PO (06:00)
[2021-05-28] MEDS: ONDANSETRON 4 MG/2 ML INJ IV ×2 (07:50→14:59)
[2021-05-28] MEDS: KETOROLAC 30 MG/ML VIAL 15 MG IV (07:50)
[2021-05-28] MEDS: DOCUSATE 100 MG CAPSULE 200 MG PO (09:26)
[2021-05-28] MEDS: FERROUS SULFATE 325 MG TABLET PO (09:26)
[2021-05-28] MEDS: PRENATAL VIT,CALC/IRON/FOLIC 1 TABLET 1 TAB PO (09:26)
[2021-05-28] MEDS: OXYCODONE IR 10 MG TABLET PO ×3 (10:45→21:00)
[2021-05-28] MEDS: METOCLOPRAMIDE 10 MG/2 ML INJ 5 MG IV (16:25)
[2021-05-28 16:48] VITALS: TEMP 37.4
--- NOTE | 2021-05-28 18:33 | PM.OBPN.1 ---
Subjective - OB Subjective Patient comments: incisional pain and flatus present baby status: bottle feeding well feeding status: exclusively bottle feeding Date Patient Seen: 05/28/21 Time Patient Seen: 10:30 Interval history: Post section day 2. Patient had been doing better but then had nausea today. Patient has been able to have a bowel movement and is urinating well. She is just having a hard time dealing with pain with movements. Exam Vital Signs (past 8 hours): Blood pressure 126/85, pulse of 100, temperature 99.4?- 05/28/21 16:48 Temperature 99.4 F Oxygen Delivery Method Room Air Narrative Exam Narrative: Abdomen is soft, nontender. Uterus is firm, at U, nontender. Incision is clean, dry, intact. Mild lochia. Extremities with trace edema and nontender. Objective Labs Result Diagrams: 05/27/21 08:43 Assessment & Plan Plan day: 2 plan OB: routine postop care Comments: Likely home in a.m. if continuing to improve. Time Spent With Patient Time: Total time spent is greater than 50% in coordination of care (as documented) at patient's floor/unit and/or counseling patient: Time with patient: less than 15 minutes
[2021-05-28] MEDS: IBUPROFEN 600 MG TABLET PO (19:54)
[2021-05-29] MEDS: ACETAMINOPHEN 325 MG TABLET 650 MG PO ×2 (01:54→07:51)
[2021-05-29] MEDS: OXYCODONE IR 10 MG TABLET PO ×2 (01:55→09:05)
[2021-05-29] MEDS: IBUPROFEN 600 MG TABLET PO ×2 (01:55→07:50)
[2021-05-29] MEDS: METOCLOPRAMIDE 10 MG/2 ML INJ 5 MG IV (07:17)
[2021-05-29] MEDS: FERROUS SULFATE 325 MG TABLET PO (07:50)
[2021-05-29] MEDS: DOCUSATE 100 MG CAPSULE 200 MG PO (07:51)
[2021-05-29] MEDS: PRENATAL VIT,CALC/IRON/FOLIC 1 TABLET 1 TAB PO (07:51)
[2021-05-29] MEDS: MEASLES,MUMPS,RUBELLA VACC/PF 0.5 ML VIAL SUBCUT (10:52)
--- NOTE | 2021-05-29 10:53 | PM.OBDS.1 ---
Discharge Providers Provider Date of admission: 05/24/21 21:57 Discharge Date: 05/29/21 Primary care physician: Jun Villagomez MD Consults: 05/24/21 22:14 Consult to Anesthesiology Urgent Comment: Consulting Provider: Anesthesiologist Reason for consultation: Epidural Has provider been notified: No 05/27/21 00:12 Consult to Screw Machine Repairer Routine Comment: Discharge provider: Olegario Eckert MD Summary Hospital Course Date Patient Seen: 05/29/21 Time Patient Seen: 10:30 Diagnoses: S/P Primary section for arrest of labor in the 2nd stage Hospital Course: The patient was admitted for induction due to and cervical ripening was initiated on the afternoon of 05/25/2021. Pitocin augmentation was subsequently initiated and AROM performed early on the afternoon of 05/26/2021 and IUPC placed to assess uterine contractility. The patient progressed into the 2nd stage of labor and pushed for over 2 hours with absolutely no descent of the vertex. After discussing all options with the patient the decision was made to proceed primary section which was performed on the evening of 05/26/2021. Her infant's weight was 3198 gms. (7# .8 oz.) with Apgars 9/9. Following delivery the patient has experienced slow but gradual return of bowel function or necessitating an additional day of hospitalization. She now has full return of bowel and bladder function, is ambulating well independently, tolerating a regular diet, and her pain management is good with a combination oxycodone, ibuprofen, and Tylenol. The patient is discharged now in an afebrile normotensive condition to home with medications to include oxycodone 5 mg 1 p.o. q.4 hours dispense 20 with no refills, ibuprofen 600 mg p.o. q.6 hours dispense 60 x 2, OTC Colace, and OCT Tylenol. She is not breast-feeding and request that oral contraceptives be initiated which she has used in the past to good effect and a prescription of Oscar was was also sent electronically to her pharmacy. Prior to discharge the patient was counseled regarding precautionary symptoms, limitations of activity, medications, and plans for follow-up with her next prescription scheduled for 06/02/2021 at 12:00 p.m. Peripartum Data Delivery Method: Section Laceration Description: None Episiotomy description: None complications: none Discharge Diagnosis (1) Delivery by section using transverse incision of lower segment of uterus: Status: Acute Status at Discharge Cognitive/behavioral status at discharge: oriented Functional status at discharge: independent ambulation Overall status at discharge: patient is progressing back to baseline Time Spent with Patient Time attestation: Total time spent providing and/or coordinating discharge services: Time spent: Less than 30 minutes Objective Labs Result Diagrams: 05/27/21 08:43 Exam Vital Signs (past 8 hours): Oxygen Delivery Method Room Air Const General: cooperative and comfortable Nutritional Appearance: overweight Orientation: alert and awake HENMT Head: normal to inspection Eyes General: appearance normal, both eyes and all related structures Neck Neck: normal visual inspection Resp Effort & Inspection: normal respiratory effort and able to speak in complete sentences Auscultation: clear to auscultation bilaterally Cardio Rate: regular rate Rhythm: regular rhythm Heart Sounds: S1 normal, S2 normal and no murmurs GI Inspection: normal to inspection and incision (Dressing clean and dry) Palpation: soft and tender (Diffuse, mild) Discharge Plan Discharge Plan Patient Disposition: Home Provider Discharge Comment: See written instructions. Your next appointment will be on 06/02/2021 at noon for an incision check. Be well! Discharge orders & Medications Prescriptions: New oxycodone 5 mg tablet 5 mg PO Q4H PRN (Reason: post-op pain) Qty: 20 RF: 0 ibuprofen 600 mg tablet 600 mg PO Q6H PRN (Reason: post-op pain) Qty: 60 RF: 0 drospirenone-ethinyl estradiol [OSCAR (28)] 3-0.02 mg tablet 1 tab PO DAILY Qty: 28 RF: 12 Continued omeprazole 40 mg capsule,delayed release(DR/EC) 40 mg PO DAILY Qty: 30 RF: 2 prenat.vits,mariano,[id number] Tablet 1 tab PO DAILY RF: 0 Zyrtec 10 mg capsule 10 mg PO DAILY PRN (Reason: allergy symptoms) Qty: 30 RF: 2 Follow up/Referrals: Olegario Eckert MD [Physician] - (Incision check: Jun.02 @ 12pm w/ Dr. Eckert appt: Jun 29 @ 1130am w/ Dr. Florentino) Diet/Activity/Treatments Diet: Diet as Tolerated Skin/Wound/Dressing Care Report to your healthcare provider any signs of infection, such as:: chills, fever, increased pain, unusual drainage and unusual redness Dressing: Leave in place until your visit on 06/02/2021. Visit Report/Discharge Packet Instructions: DI for Stand Alone Forms: Discharge: Care Discharge Data Primary Care Provider: Jun Villagomez
== END 2021-05-29 11:37 | disposition home or self-care (01) | DRG 540 ==
PROVIDERS: Admitting Provider Specialist; PCP Internal Medicine; Referring Provider Specialist; Visit Provider Specialist
PROC: 10D00Z1 Extraction of Products of Conception, Low, Open Approach (ICD-10-PCS; CPT 59514; principal; 2021-05-26 21:00)
DX: O62.1 Secondary uterine inertia (principal); O75.81 Maternal exhaustion complicating labor and delivery; Z3A.39 39 weeks gestation of pregnancy; Z37.0 Single live birth; Z20.822 Contact with and (suspected) exposure to COVID-19
CPT/HCPCS: 01967; 01968; 36415; 59050; 59200; 59514; 76815; 85025; 86850; 86900; 86901; 87635; C9803; G0379; J0330; J0595; J0690; J1100; J1885; J2274; J2405; J2590; J2704; J2765; J3010

== ENCOUNTER → 2021-06-29 12:27 | Outpatient (CLI) | payer OTHER, MEDICAID, SELFPAY ==
[2021-06-29 13:50] LABS: SARS- CoV-2 Not Detected (Not Detecte)
[2021-06-29 13:53] LABS: COVID19 - ADMIT (NP swab/PCR) Negative (Negative)
[2021-06-29 15:44] LABS: Adenovirus Not Detected (Not Detect); B. parapertussis Not Detected (Not Detecte); Bordetella pertussis Not Detected (Not Detecte); Chlamydophila pneumoniae Not Detected (Not Detect); Coronavirus 229E Not Detected (Not Detect); Coronavirus HKU1 Not Detected (Not Detect); Coronavirus NL 63 Not Detected (Not Detect); Coronavirus OC43 Not Detected (Not Detect); Human Metapneumovirus Not Detected (Not Detect); Human Rhinovirus/Enterovirus Not Detected (Not Detect); Influenza A Not Detected (Not Detect); Influenza B Not Detected (Not Detect); Mycoplasma pneumoniae Not Detected (Not Detect); Parainfluenza Virus 1 Not Detected (Not Detect); Parainfluenza Virus 2 Not Detected (Not Detect); Parainfluenza Virus 3 Not Detected (Not Detect); Parainfluenza Virus 4 Not Detected (Not Detect); Respiratory Syncytial Virus Not Detected (Not Detect)
== END ==
PROVIDERS: PCP Internal Medicine; Visit Provider Specialist
DX: R05 Cough (principal); Z20.822 Contact with and (suspected) exposure to COVID-19
CPT/HCPCS: 87633; U0003